=== PATIENT | female | born 1975 | race Caucasian/White ===

== ENCOUNTER 2017-02-17 11:04 | Emergency (ER) | payer OTHER ==
[~2017-02-17] VITALS: Ht 162.6 cm; Wt 86.7 kg
[2017-02-17 11:15] VITALS: Ht 162.6 cm; Wt 86.7 kg
[2017-02-17 13:31] VITALS: BP 136/80
== END 2017-02-17 13:31 | disposition home or self-care (01) ==
LOC: ED 11:04
DX: S00.31XA Abrasion of nose, initial encounter (principal); B34.9 Viral infection, unspecified; X58.XXXA Exposure to other specified factors, initial encounter; Y93.89 Activity, other specified; Y99.8 Other external cause status; Y92.89 Other specified places as the place of occurrence of the external cause
CPT/HCPCS: 90715; J1100